=== PATIENT | female | born 1985 ===

== ENCOUNTER 2017-03-22 13:48 | Emergency (ER) | payer OTHER ==
[~2017-03-22] VITALS: Ht 165.1 cm; Wt 61.2 kg
[2017-03-22 14:44] LABS: POC - CKMB <1.0 ng/mL (0.0-7.9); POC - TROPONIN <0.05 ng/mL (<=0.05)
[2017-03-22 14:45] LABS: BASOPHIL% 0.5 % (0-2.5); EOSINOPHIL# 0.2 X10e3 (0-0.7); HEMATOCRIT 35.7 % (35.0-45.0); LYMPHOCYTE# 4.1 X10e3 (1.0-3.5); LYMPHOCYTE% 51.7 % (17.0-45.0); MEAN CELL VOLUME 86.6 FL (83-96); MEAN CORPUSCULAR HEMOGLOBIN 29.2 PG (28-34); MEAN CORPUSCULAR HGB CONC 33.7 g/dL (30-36); MEAN PLATELET VOLUME 7.1 FL (6.5-11.5); MONOCYTE# 0.6 X10e3 (0-1.0); MONOCYTE% 7.9 % (3.0-12.0); NEUTROPHIL% 37.9 % (40-75); PLATELET COUNT 251 X10e3 (140-420); RED BLOOD COUNT 4.12 X10e (3.90-5.30); RED CELL DISTRIBUTION WIDTH 14.5 % (11.0-15.5); WHITE BLOOD COUNT 7.9 X10e3 (4.0-10.5)
[2017-03-22 14:46] LABS: DIFF IND YES
[2017-03-22 14:58] LABS: ALBUMIN SERUM 3.5 g/dL (3.5-5.0); ALKALINE PHOSPHATASE 77 U/L (32-92); ALT (SGPT) 36 U/L (10-40); AST (SGOT) 36 U/L (10-42); BILIRUBIN, DIRECT 0.1 mg/dL (0.0-0.2); BILIRUBIN,INDIRECT 0.1 mg/dL (0.0-0.9); BILIRUBIN,TOTAL 0.2 mg/dL (0.2-2.0); BLOOD UREA NITROGEN 13 mg/dL (9-23); BUN/CREATININE RATIO 18.57; CALCIUM SERUM 8.6 mg/dL (8.4-10.2); CARBON DIOXIDE 27 mmol/L (22-31); CHLORIDE 103 mmol/L (100-111); CREATININE SERUM 0.7 mg/dL (0.6-1.4); GLOM FILT RATE Estimated 115.5 mL/min (>60); GLUCOSE FASTING 51 mg/dL (70-110); PROTEIN TOTAL SERUM 7.1 g/dL (6.0-8.3); SODIUM 136 mmol/L (135-145)
[2017-03-22 15:02] LABS: ALCOHOL BLOOD <5 mg/dL (0)
[2017-03-22 15:13] LABS: PLATELET ESTIMATE NORMAL (NORMAL)
[2017-03-22 15:14] LABS: RBC NORMAL YES
[2017-03-22 15:59] LABS: AMPHETAMINE POS (NEG); BARBITURATES NEG (NEG); BENZODIAZEPINES POS (NEG); COCAINE NEG (NEG); MARIJUANA NEG (NEG); OPIATES POS (NEG); TRICYCLIC ANTIDEPRESSANTS NEG (NEG); U METHADONE NEG (NEG)
== END 2017-03-22 16:07 | disposition home or self-care (01) ==
LOC: CED 13:48
PROVIDERS: Emergency Medicine
DX: T40.1X1A Poisoning by heroin, accidental (unintentional), initial encounter (principal); E87.6 Hypokalemia; E16.2 Hypoglycemia, unspecified; F17.200 Nicotine dependence, unspecified, uncomplicated; Z88.0 Allergy status to penicillin
CPT/HCPCS: 36415; 80048; 80076; 80307; 82553; 82947; 83605; 83880; 84484; 84703; 85025; 87806; 96361; 96374; 96375; 96376; 99284; G0480; J2310